=== PATIENT | male | born 1950 ===

== ENCOUNTER 2018-04-10 05:50 | Day surgery (SDC) | payer OTHER ==
[~2018-04-10 05:50] MED LIST: HYDRODIURIL12.5 MG PO
== END 2018-04-10 11:05 | disposition home or self-care (01) ==
LOC: CIR.AMB 05:50
DX: M75.121 Complete rotator cuff tear or rupture of right shoulder, not specified as traumatic (principal); M13.811 Other specified arthritis, right shoulder